=== PATIENT | female | born 1990 | race Hispanic/Latino ===

== ENCOUNTER 2021-03-29 10:38 | Inpatient (IN) | payer BC, MEDICAID, SELFPAY ==
[2021-03-29] MEDS ORDERED: Misoprostol 200 MCG TAB PR PRN (10:52)
[2021-03-29] MEDS ORDERED: Carboprost 250 MCG/ML AMP IM PRN (10:52)
[2021-03-29] MEDS ORDERED: Lidocaine 1% (PF) 30 ML VIAL SC PRN (10:52)
[2021-03-29] MEDS ORDERED: Ibuprofen 800 MG TAB PO PRN (10:52)
[2021-03-29] MEDS ORDERED: Methylergonovine 0.2 MG/ML VIAL IM PRN (10:52)
[2021-03-29] MEDS ORDERED: hydrALAZINE 20 MG/ML VIAL SLOW IVP PRN (10:56)
[2021-03-29] MEDS ORDERED: Promethazine HCl 25 MG/ML VIAL IM PRN (10:56)
[2021-03-29] MEDS ORDERED: Ondansetron PF 4 MG/2 ML Vial IVP PRN (10:56)
[2021-03-29] MEDS ORDERED: NS w/ Oxytocin 30 units 500 ML IVPB SCH (11:00)
[2021-03-29] MEDS ORDERED: NS w/ Oxytocin 30 units 500 ML IV SCH (11:00)
[2021-03-29] MEDS: Lactated Ringer's 1,000 ML IV SCH ×2 (11:58→18:51)
[2021-03-29] MEDS ORDERED: Misoprostol 100 MCG TAB VAG SCH (12:00)
[2021-03-29 12:12] VITALS: BMI 27.3
[2021-03-29 12:31] LABS: Hemoglobin 12.1 g/dL (12.0-15.5); Mean Corpuscular HGB CONC 34.6 g/dL (32.0-36.0); Mean Corpuscular Hemoglobin 32.3 pg (27.0-33.0); Mean Corpuscular Volume 93.3 fl (81.6-98.3); Platelet Count 213 10x3/uL (150-450); RBC Distribution Width 12.7 % (11.5-14.5); Red Blood Cell (RBC) Count 3.75 10x6/uL (3.90-5.03); White Blood Cell (WBC) Count 8.4 10x3/uL (3.5-10.5)
[2021-03-29 14:01] LABS: Hep B Surf Ag Non-Reactive S/CO (NonReactive)
[2021-03-29 14:02] LABS: Syphilis Antibody Nonreactive (Nonreactive); Syphilis Antibody Index 0.04 S/CO (<1.00 Non-Reactive)
[2021-03-29 14:09] LABS: HBSAg Index 0.18 S/CO (0-0.99)
[2021-03-29] MEDS ORDERED: Butorphanol Tartrate 1 MG/ML VIAL ONE (22:24)
[2021-03-29] MEDS: Butorphanol Tartrate 1 MG/ML VIAL SLOW IVP PRN (22:26)
[2021-03-30 01:14] LABS: SARS-CoV-2 PCR by NAA Not Detected (NotDetected)
[2021-03-30] MEDS: Butorphanol Tartrate 1 MG/ML VIAL SLOW IVP PRN (01:53)
[2021-03-30] MEDS ORDERED: Preparation H Ointment 28 GM TUBE PR PRN (04:12)
[2021-03-30] MEDS ORDERED: Milk Of Magnesia 30 ML UDCUP PO PRN (04:12)
[2021-03-30] MEDS ORDERED: Methylergonovine 0.2 MG/ML VIAL IM PRN (04:12)
[2021-03-30] MEDS ORDERED: Bisacodyl 10 MG SUPP PR PRN (04:12)
[2021-03-30] MEDS ORDERED: Misoprostol 200 MCG TAB VAG PRN (04:12)
[2021-03-30] MEDS ORDERED: Benzocaine-Menthol 82.5 ML CAN TOP PRN (04:12)
[2021-03-30] MEDS ORDERED: hydrALAZINE 20 MG/ML VIAL SLOW IVP PRN (04:12)
[2021-03-30] MEDS ORDERED: NS w/ Oxytocin 30 units 500 ML IV SCH (04:12)
[2021-03-30] MEDS ORDERED: Lanolin Ointment 7 GM TUBE TOP PRN (04:12)
[2021-03-30] MEDS: Lactated Ringer's 1,000 ML IV SCH (05:20)
[2021-03-30] MEDS: Ibuprofen 800 MG TAB PO SCH ×3 (07:17→21:39)
[2021-03-30] MEDS ORDERED: Varicella virus, LIVE 0.5 ML VIAL SC ONE (09:00)
[2021-03-30] MEDS ORDERED: Adacel (T-DAP) 0.5 ML SYRINGE IM ONE (09:00)
[2021-03-30] MEDS: Docusate Calcium (SURFAK) 240 MG CAP PO SCH ×2 (09:40→21:40)
[2021-03-30] MEDS: Prenatal Vitamin 1 TAB PO SCH (09:40)
[2021-03-30] MEDS: Ferrous Sulfate 325 MG TAB PO SCH ×2 (09:42→16:53)
[2021-03-30] MEDS: HYDROcodone/Acetaminophen 5/325 mg Tablet PO PRN (18:00)
[2021-03-31] MEDS: HYDROcodone/Acetaminophen 5/325 mg Tablet PO PRN (00:37)
[2021-03-31] MEDS: Ibuprofen 800 MG TAB PO SCH ×2 (05:26→14:22)
[2021-03-31] MEDS ORDERED: Acetaminophen 500 MG TAB PO PRN (06:57)
[2021-03-31] MEDS: Ferrous Sulfate 325 MG TAB PO SCH (07:13)
[2021-03-31] MEDS: Prenatal Vitamin 1 TAB PO SCH (07:41)
[2021-03-31] MEDS: Docusate Calcium (SURFAK) 240 MG CAP PO SCH (07:41)
[2021-03-31 08:13] VITALS: BP 113/59; TEMP 98.1
== END 2021-03-31 17:08 | disposition home or self-care (01) | DRG 807 ==
LOC: CSHLD 10:38 → CSHPED 03-30 03:25
PROVIDERS: ADMIT Family Medicine; ATTEND Family Medicine
PROC: 4A0HXCZ Measurement of Products of Conception, Cardiac Rate, External Approach (ICD-10-PCS; principal; 2021-03-29)
PROC: 10E0XZZ Delivery of Products of Conception, External Approach (ICD-10-PCS; 2021-03-29)
DX: O36.5930 Maternal care for other known or suspected poor fetal growth, third trimester, not applicable or unspecified (principal); Z37.0 Single live birth; O70.0 First degree perineal laceration during delivery; Z3A.38 38 weeks gestation of pregnancy
CPT/HCPCS: 36415; 76819; 85027; 86780; 86850; 86900; 86901; 87340; 87635; 88307; J0595; J2590; U0003; U0005

== ENCOUNTER 2023-09-14 05:00 | Inpatient (IN) | payer MEDICAID, OTHER ==
[2023-09-14] MEDS ORDERED: Tranexamic Acid 1,000 MG/10 ML VIAL IVP PRN (07:16)
[2023-09-14] MEDS ORDERED: Docusate 100 MG CAP PO PRN (07:16)
[2023-09-14] MEDS ORDERED: Misoprostol 200 MCG TAB PR PRN (07:16)
[2023-09-14] MEDS ORDERED: Carboprost 250 MCG/ML AMP IM PRN (07:16)
[2023-09-14] MEDS ORDERED: Acetaminophen 500 MG TAB PO PRN (07:16)
[2023-09-14] MEDS ORDERED: Ondansetron PF 4 MG/2 ML Vial IVP PRN (07:16)
[2023-09-14] MEDS ORDERED: Methylergonovine 0.2 MG/ML VIAL IM PRN (07:16)
[2023-09-14] MEDS ORDERED: hydrALAZINE 20 MG/ML VIAL SLOW IVP PRN ×3 (07:16→18:46)
[2023-09-14] MEDS ORDERED: Diphenoxylate HCl/Atropine Tablet PO PRN (07:16)
[2023-09-14] MEDS ORDERED: Promethazine HCl 25 MG/ML VIAL IM PRN (07:16)
[2023-09-14] MEDS ORDERED: Lidocaine 1% (PF) 30 ML VIAL SC PRN (07:24)
[2023-09-14] MEDS ORDERED: Ibuprofen 800 MG TAB PO PRN (07:24)
[2023-09-14] MEDS ORDERED: Lactated Ringer's 1,000 ML IV SCH (07:30)
[2023-09-14] MEDS ORDERED: Misoprostol 100 MCG TAB VAG SCH (07:30)
[2023-09-14] MEDS ORDERED: Oxytocin 30 units/NS 500 ML 500 ML IV SCH ×2 (07:30)
[2023-09-14 07:52] VITALS: BMI 28.0
[2023-09-14 07:56] LABS: Hemoglobin 12.2 g/dL (12.0-15.5); Mean Corpuscular HGB CONC 34.9 g/dL (32.0-36.0); Mean Corpuscular Hemoglobin 32.4 pg (27.0-33.0); Mean Corpuscular Volume 93.1 fl (81.6-98.3); Mean Platelet Volume 10.7 fl (7.4-10.4); Platelet Count 244 10x3/uL (150-450); RBC Distribution Width 12.5 % (11.5-14.5); Red Blood Cell (RBC) Count 3.76 10x6/uL (3.90-5.03); White Blood Cell (WBC) Count 13.1 10x3/uL (3.5-10.5)
[2023-09-14 08:41] LABS: Syphilis Antibody Nonreactive (Nonreactive)
[2023-09-14 08:42] LABS: HBSAg Index 0.18 S/CO (0-0.99); Hep B Surf Ag - L&D Non-Reactive S/CO (NonReactive)
[2023-09-14] MEDS: Misoprostol 100 MCG TAB VAG SCH ×2 (09:01→12:32)
[2023-09-14] MEDS ORDERED: Lanolin Ointment 7 GM TUBE TOP PRN (18:46)
[2023-09-14] MEDS ORDERED: Preparation H Ointment 28 GM TUBE PR PRN (18:46)
[2023-09-14] MEDS ORDERED: Benzocaine-Menthol 82.5 ML CAN TOP PRN (18:46)
[2023-09-14] MEDS ORDERED: Milk Of Magnesia 30 ML UDCUP PO PRN (18:46)
[2023-09-14] MEDS ORDERED: Bisacodyl 10 MG SUPP PR PRN (18:46)
[2023-09-14] MEDS ORDERED: Ibuprofen 800 MG TAB PO SCH (22:00)
[2023-09-14] MEDS: Docusate 100 MG CAP PO SCH (22:47)
[2023-09-15] MEDS: Ibuprofen 800 MG TAB PO SCH ×3 (03:55→22:20)
[2023-09-15] MEDS: Prenatal Vitamin 1 TAB PO SCH (08:26)
[2023-09-15] MEDS: Docusate 100 MG CAP PO SCH ×2 (08:27→22:00)
[2023-09-15] MEDS: Ferrous Sulfate 325 MG TAB PO SCH (09:00)
[2023-09-15] MEDS ORDERED: Ibuprofen 800 MG TAB PO SCH (22:30)
[2023-09-16] MEDS: Ibuprofen 800 MG TAB PO SCH ×2 (06:28→13:47)
[2023-09-16] MEDS: Docusate 100 MG CAP PO SCH (08:31)
[2023-09-16] MEDS: Prenatal Vitamin 1 TAB PO SCH (08:31)
[2023-09-16] MEDS: Ferrous Sulfate 325 MG TAB PO SCH ×2 (08:32→17:36)
[2023-09-16 08:43] VITALS: BP 127/57; TEMP 98.3
== END 2023-09-16 17:23 | disposition home or self-care (01) | DRG 807 ==
LOC: CSHLD 06:23 → CSHPP 20:56
PROVIDERS: ADMIT Family Medicine; ATTEND Family Medicine
PROC: 10E0XZZ Delivery of Products of Conception, External Approach (ICD-10-PCS; principal; 2023-09-14)
PROC: 0KQM0ZZ Repair Perineum Muscle, Open Approach (ICD-10-PCS; 2023-09-14)
PROC: 3E0P7VZ Introduction of Hormone into Female Reproductive, Via Natural or Artificial Opening (ICD-10-PCS; 2023-09-14)
DX: O36.5930 Maternal care for other known or suspected poor fetal growth, third trimester, not applicable or unspecified (principal); Z37.0 Single live birth; Z3A.39 39 weeks gestation of pregnancy; D64.9 Anemia, unspecified; O70.1 Second degree perineal laceration during delivery; O99.02 Anemia complicating childbirth
CPT/HCPCS: 36415; 85027; 86780; 86850; 86900; 86901; 87340; J2001; J2590